=== PATIENT | male | born 2005 | race African-American/Black ===

== ENCOUNTER 2024-07-29 02:02 | Emergency (ER) | payer SELFPAY ==
[~2024-07-29] VITALS: Ht 167.6 cm; Wt 81.0 kg
[2024-07-29 02:05] VITALS: PULSE 72; O2SAT 99
[2024-07-29 02:47] VITALS: BP 120/72; TEMP 98.5; O2SAT 98
[2024-07-29] MEDS: IBUPROFEN 600MG TABLET PO ONE (03:45)
[2024-07-29] MEDS ORDERED: NAPR-1176 MT (04:15)
[2024-07-29] MEDS ORDERED: LIDO700A15 TP (04:16)
[2024-07-29 04:24] VITALS: RESP 19
== END 2024-07-29 04:21 | disposition home or self-care (01) ==
LOC: ER 02:02
DX: R51.9 Headache, unspecified (principal); Z79.1 Long term (current) use of non-steroidal anti-inflammatories (NSAID); V49.49XA Driver injured in collision with other motor vehicles in traffic accident, initial encounter; Y93.89 Activity, other specified; Y92.89 Other specified places as the place of occurrence of the external cause; Y99.8 Other external cause status
CPT/HCPCS: 99283